=== PATIENT | male | born 1950 | race Caucasian/White ===

== ENCOUNTER 2022-10-26 14:15 | Observation (INO) | payer OTHER ==
[~2022-10-26] VITALS: Ht 177.8 cm; Wt 77.1 kg
[2022-10-26 14:25] VITALS: BP_SYST 111
[2022-10-26] MEDS ORDERED: ASPIRIN 81 MG TAB.CHEW PO ONE (14:45)
[2022-10-26] MEDS ORDERED: ASPIRIN 325 MG TABLET PO ONE (15:00)
[2022-10-26 15:24] LABS: BASOPHILS % (AUTO) 0.3 % (0.0-2.0); EOSINOPHILS # (AUTO) 0.1 K/uL (0.0-0.4); EOSINOPHILS % (AUTO) 0.6 % (0.0-4.0); HEMATOCRIT 41.5 % (36-54); HEMOGLOBIN 14.3 g/dL (14.0-18.0); LYMPHOCYTES # (AUTO) 1.2 K/uL (1.0-5.5); LYMPHOCYTES % (AUTO) 12.9 % (20.5-51.5); MEAN CORPUSCULAR HEMOGLOBIN 33 pg (27-31); MEAN CORPUSCULAR HGB CONC 35 % (32-36); MEAN CORPUSCULAR VOLUME 95 fL (79.0-98.0); MONOCYTES # (AUTO) 0.8 K/uL (0.0-1.0); MONOCYTES % (AUTO) 8.5 % (1.7-9.3); NEUTROPHILS # (AUTO) 7.5 K/uL (1.8-7.7); NEUTROPHILS % (AUTO) 77.7 % (40.0-70.0); PLATELET COUNT (AUTO) 424 K/uL (130-430); RED BLOOD CELL COUNT(AUTO) 4.36 MIL/uL (4.2-6.2); RED CELL DISTRIBUTION WIDTH 13.8 % (9.0-15.0); WHITE BLOOD COUNT (AUTO) 9.7 K/uL (4.8-10.8)
--- NOTE | 2022-10-26 15:24 | NUR ---
Placed in [facility] BED . Placed on valance cutter, blood pressure machine and pulse oximeter. To gown for exam. Side rails up.
[2022-10-26 15:25] LABS: ANION GAP 10 (5-15); CALCIUM 9.4 mg/dL (8.4-11.0); CHLORIDE 101 mmol/L (98-107); CREATININE 1.03 mg/dL (0.55-1.30); GLUCOSE 144 mg/dL (70-99); UREA NITROGEN, BLOOD 11 mg/dL (8-21)
[2022-10-26 15:32] LABS: ALANINE AMINOTRANSFERASE 36 U/L (12-78); ALBUMIN 4.3 g/dL (3.4-4.8); ASPARTATE AMINOTRANSFERASE 23 U/L (10-37)
[2022-10-26 15:33] LABS: GFR AFRICAN AMERICAN 92 mL/min (>90)
--- NOTE | 2022-10-26 16:08 | NUR ---
Pt complains of abdominal pain that radiates to the chest. Pt states unable to eat, complains of nausea without episodes of vomiting, diarrhea for past several months. Pt notes GI specialist appointment set for 11/06/2022. Pt describes pain as intermittant burning the radiates with positioning. Past medical history HTN, diabetes
[2022-10-26] MEDS ORDERED: NACL 0.9% 1,000 ML IV ONE (16:30)
[2022-10-26] MEDS ORDERED: MAG-AL HYDROX/SIMETH 30 ML UDC PO ONE (16:30)
[2022-10-26] MEDS ORDERED: FAMOTIDINE PF 20 MG/2 ML VIAL IVP ONE (16:30)
--- NOTE | 2022-10-26 16:45 | NUR ---
ER at bedside examining patient.
--- NOTE | 2022-10-26 17:00 | NUR ---
# 20 gauge angiocath placed to RAC. Use of asceptic technique. Opsite placed over site. Blood return noted. Blood for lab drawn from site. Flushed with 10 cc of normal saline. No evidence of infiltration noted. Patient tolerated well.
--- NOTE | 2022-10-26 17:05 | NUR ---
Medicated per MD orders. IVF infusing with no s/s of infiltration at this time. Will cont to monitor
[2022-10-26] MEDS ORDERED: iohexoL 350 mgI/mL, 100 ML INFUS..BTL IV ONE (17:08)
--- NOTE | 2022-10-26 19:19 | NUR ---
RECEIVED REPORT FROM GLORIA ALBERTO
--- NOTE | 2022-10-26 19:27 | NUR ---
Admit bed requested Patient will be admitted to care of Dr. LOZANO. Admitted to TELE unit. Diagnosis CHECT PAIN & ABDOMINAL PAIN Inpatient (Yes or No) YES Observation (Yes or No) NO Orientation concerns or request close to nursing station (Yes or No) NO Covid Status NEG On vent or bipap NO Isolation requirements NO Needs a sitter NO From Home (Yes or if No enter name of facility) YES Requires Dialysis (Yes or No) NO Med Rec Completed (Yes of No) YES
--- NOTE | 2022-10-26 19:28 | NUR ---
covid swab collected and sent to lab
--- NOTE | 2022-10-26 20:37 | NUR ---
PROVIDED PATIENT WITH SANDWICH, JUICE AND WATER.
--- NOTE | 2022-10-26 21:25 | NUR ---
PATIENT AMBULATED TO RESTROOM.
--- NOTE | 2022-10-26 22:23 | NUR ---
Patient resting quietly. No acute distress noted. Vital signs within normal range. Family member at bedside. Lights turned off so patient can rest more comfortably.
[2022-10-26] MEDS ORDERED: PANTOPRAZOLE SODIUM 40 MG/VIAL (PROTONIX) IVP SCH (23:15)
--- NOTE | 2022-10-27 00:14 | NUR ---
Patient resting quietly. No acute distress noted. Vital signs within normal range.
--- NOTE | 2022-10-27 01:30 | NUR ---
Patient resting quietly. No acute distress noted. Vital signs within normal range.
--- NOTE | 2022-10-27 04:47 | NUR ---
Patient resting quietly. No acute distress noted. Vital signs within normal range.
[2022-10-27] MEDS ORDERED: OMEP-268 PO (13:09)
[2022-10-27 13:44] VITALS: BP_SYST 125
[2022-10-27 14:26] VITALS: BP_SYST 127
--- NOTE | 2022-10-27 14:27 | NUR ---
Patient given written and verbal discharge instructions and verbalizes understanding. ER MD DR SANCHEZ discussed with patient the results and treatment provided. Patient in stable condition. ID arm band removed. IV catheter removed intact and dressing applied, no active bleeding. Rx of PRILOSIC given. Patient educated on pain management and to follow up with PMD. Pain Scale 0/10. Opportunity for questions provided and answered. Medication side effect fact sheet provided.
== END 2022-10-27 14:27 | disposition home or self-care (01) ==
LOC: SED 14:15 → STU 19:22 → INTOOBSV 19:22 → STU 10-27 14:26
PROVIDERS: ADMIT Preventive Medicine Preventive Medicine/Occupational Environmental Medicine; ATTEND Preventive Medicine Preventive Medicine/Occupational Environmental Medicine
DX: R07.89 Other chest pain (principal); Z20.822 Contact with and (suspected) exposure to COVID-19; E11.65 Type 2 diabetes mellitus with hyperglycemia; I25.10 Atherosclerotic heart disease of native coronary artery without angina pectoris; E78.5 Hyperlipidemia, unspecified; I10 Essential (primary) hypertension; K29.80 Duodenitis without bleeding; Z79.4 Long term (current) use of insulin; Z79.899 Other long term (current) drug therapy
CPT/HCPCS: 96361 ×2; 80053; 83880; 85025; 84484; 36415; 71045; 71275; 76376; 74177; 99285; 96374; 96375; 87426; Q9967; J3490; C9113; J7030; G0378 ×2